=== PATIENT | male | born 1980 | race African-American/Black ===

== ENCOUNTER 2019-09-11 21:10 | Emergency (ER) | payer OTHER ==
[2019-09-11 21:15] VITALS: BP 148/81; PULSE 126; TEMP 99.1; BMI 29.5
[2019-09-11] MEDS ORDERED: KETOROLAC TROMETHAMINE 30 MG/1 ML VIAL IM ONE (21:52)
[2019-09-11] MEDS ORDERED: KETOROLAC TROMETHAMINE 30 MG/1 ML VIAL ONE (22:26)
[2019-09-11] MEDS ORDERED: ALBUTEROL SO4 2.5/IPRATROPIUM 0.5 INH SOL 3 ML VIAL.NEB. NEB ONE (22:31)
--- NOTE | 2019-09-11 22:36 | PDOC ---
History of Present Illness - General Chief Complaint: Respiratory Stated Complaint: COUGH Time Seen by Provider: 09/11/19 21:41 History Source: Patient Exam Limitations: No Limitations - History of Present Illness Initial Comments: 09/11/19 22:33 38-year-old male denies past medical history complaining of nasal congestion, dry cough last night. Today developed body aches, subjective fever and chills. 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 Denies chest pain, shortness of breath, back pain, abdominal pain, nausea, vomiting, diarrhea or any other complaints. Took ibuprofen at approximately 7 AM today. Smokes approximately 6 cigarettes daily. ROS: GENERAL/CONSTITUTIONAL: Body aches, subjective fever and chills HEAD, EYES, EARS, NOSE AND THROAT: No changes in vision, No ear pain or discharge, No sore throat CARDIOVASCULAR: No chest pain RESPIRATORY: Positive cough, no shortness of breath GASTROINTESTINAL: No pain, nausea, vomiting, diarrhea or constipation GENITOURINARY: No dysuria MUSCULOSKELETAL: No neck or back pain SKIN: No rash NEUROLOGIC: No headache, vertigo, loss of consciousness, or loss of sensation PE: GENERAL: Appears fatigued, NAD HEAD: NCAT EYES: Pupils equal, round and reactive to light, sclera anicteric, conjunctiva clear ENT: pharynx: no erythema, no exudate, uvula midline NECK: supple CHEST: nontender RESP: clear, no w/r/r CARDIO: rrr, no m/g/r ABD: +BS, soft, nontender, non distended BACK: no midline spinal ttp, no CVAT EXTREMITIES: Normal range of motion, no edema NEUROLOGICAL: Normal speech, normal gait SKIN: No rash, warm, Dry Past History - Past Medical History Allergies/Adverse Reactions: Allergies Allergy/AdvReac Type Severity Reaction Status Date / Time No Known Allergies Allergy Verified 09/11/19 21:18 COPD: No - Psycho Social/Smoking Cessation Hx Smoking History: Never smoked *Physical Exam - Vital Signs Last Vital Signs Temp Pulse Resp BP Pulse Ox 99.1 F 126 H 22 H 148/81 93 L 09/11/19 21:12 09/11/19 21:12 09/11/19 21:12 09/11/19 21:12 09/11/19 21:12 ED Treatment Course - RADIOLOGY Radiology Studies Ordered: Category Date Time Status CHEST PA & LAT [RAD] Stat Radiology 09/11/19 21:52 Taken - Medications Given in the ED: ED Medications Discontinued Medications Generic Name Dose Route Start Last Admin Trade Name Lillie PRN Reason Stop Dose Admin Albuterol/Ipratropium 1 amp 09/11/19 22:31 09/11/19 22:32 Duoneb - NEB 09/11/19 22:32 1 amp ONCE ONE Administration Ketorolac Tromethamine 30 mg 09/11/19 21:52 09/11/19 22:32 Toradol Injection - IM 09/11/19 21:53 30 mg ONCE ONE Administration Medical Decision Making - Medical Decision Making 09/11/19 22:35 38-year-old male with cough, subjective fever and chills, body aches x24 hours. Appears fatigued Otherwise normal exam Flu swab negative Chest x-ray 09/11/19 23:00 Patient feels better after 1 neb Reviewed chest x-ray: no acute infiltrate noted Sudafed 30 mg p.o., IM Toradol 30 mg also given Note for work Supportive care instructions provided Return precautions discussed Discharge - Discharge Information Problems reviewed: Yes Clinical Impression/Diagnosis: Viral illness Condition: Stable Disposition: HOME - Admission No - Follow up/Referral Referrals: Rhianna Nath [Primary Care Provider] - - Patient Discharge Instructions Additional Instructions: Rest, drink plenty of fluids Take ibuprofen 600 mg every 6 hours as needed for body aches Follow-up with your doctor in 1 week Return to ED if chest pain, shortness of breath, fever, nausea, vomiting, diarrhea or worsening symptoms Your flu swab test was negative today - Post Discharge Activity Work/Back to School Note: Back to Work
[2019-09-11] MEDS ORDERED: PSEUDOEPHEDRINE HCL 30 MG TABLET PO SCH (22:45)
== END 2019-09-11 23:20 | disposition home or self-care (01) ==
LOC: JERFT 21:10 → JER 21:10 → JERFT 23:20
PROC: 3E0F7GC Introduction of Other Therapeutic Substance into Respiratory Tract, Via Natural or Artificial Opening (ICD-10-PCS; principal; 2019-09-11)
PROC: 3E0233Z Introduction of Anti-inflammatory into Muscle, Percutaneous Approach (ICD-10-PCS; 2019-09-11)
DX: B34.9 Viral infection, unspecified (principal); F17.210 Nicotine dependence, cigarettes, uncomplicated
CPT/HCPCS: 71046-TC-FY; 87804; 99281-25